=== PATIENT | female | born 1980 | race Caucasian/White ===

== ENCOUNTER 2017-02-07 01:04 | Emergency (ER) | payer MEDICAID ==
[2017-02-07 02:39] VITALS: BP 123/84
== END 2017-02-07 02:39 | disposition home or self-care (01) ==
LOC: ED 01:04
DX: J20.9 Acute bronchitis, unspecified (principal); E66.9 Obesity, unspecified
CPT/HCPCS: J7620; Q0092

== ENCOUNTER 2017-03-03 19:15 | Inpatient (IN) | payer MEDICAID ==
[~2017-03-03] VITALS: Ht 160 cm; Wt 91.2 kg
[2017-03-03 20:44] LABS: BASOPHIL % 0.3 % (0-2); PLATELET COUNT 161 x10^3mcL (130-400); RED CELL DISTRIBUTION WIDTH 13.6 % (11.5-14.5)
[2017-03-03 21:00] LABS: CALCIUM 8.6 mg/dL (8.5-10.1); CARBON DIOXIDE 24.3 mmol/L (21-32); CHLORIDE SERUM 104 mmol/L (98-107); CREATININE SERUM 0.9 mg/dL (0.6-1.0); GFR1 > 60 mL/min; GLUCOSE SERUM 147 mg/dL (74-106); POTASSIUM SERUM 3.5 mmol/L (3.5-5.1); SODIUM SERUM 140 mmol/L (136-145)
[2017-03-03 21:05] LABS: ALBUMIN 3.5 g/dL (3.4-5.0); ALKALINE PHOSPHATASE 94 U/L (46-116); ALT/SGPT 52 U/L (14-59); AST/SGOT 24 U/L (15-37); BILIRUBIN TOTAL 1.05 mg/dL (0.20-1.00); TOTAL PROTEIN, SERUM 7.7 g/dL (6.4-8.2)
[2017-03-03 21:14] LABS: microscopic required? YES; urine erythrocyte TRACE (NEGATIVE)
[2017-03-03 23:12] VITALS: BP 108/76
[2017-03-03 23:13] LABS: MAGNESIUM 1.9 mg/dL (1.8-2.4); PHOSPHOROUS 2.3 mg/dL (2.5-4.9)
[2017-03-03 23:23] LABS: FREE T4 1.24 ng/dL (0.76-1.46); FREE THYROXINE INDEX 2.7 ug/dL (1.4-4.5)
[2017-03-03 23:24] LABS: CHOLESTEROL/HDL RATIO 3.3
[2017-03-04 00:21] LABS: T3 TOTAL 1.13 ng/mL
[2017-03-04 02:33] LABS: AMPHETAMINE QUAL UR NONE DETECTED (NEG <=1000)
[2017-03-04 05:55] VITALS: BP 91/57
[2017-03-04 06:21] LABS: BASOPHIL % 0.3 % (0-2); PLATELET COUNT 164 x10^3mcL (130-400); RED CELL DISTRIBUTION WIDTH 13.6 % (11.5-14.5)
[2017-03-04 06:41] LABS: CALCIUM 7.4 mg/dL (8.5-10.1); CARBON DIOXIDE 25.3 mmol/L (21-32); CHLORIDE SERUM 113 mmol/L (98-107); CREATININE SERUM 0.7 mg/dL (0.6-1.0); GFR1 > 60 mL/min; GLUCOSE SERUM 125 mg/dL (74-106); POTASSIUM SERUM 3.9 mmol/L (3.5-5.1); SODIUM SERUM 146 mmol/L (136-145)
[2017-03-04 10:36] VITALS: BP 128/79
[2017-03-04 13:38] VITALS: BP 106/61
[2017-03-04 17:14] VITALS: BP 111/68
[2017-03-04 21:59] VITALS: BP 131/82
[2017-03-05 05:54] VITALS: BP 119/79
[2017-03-05 06:56] LABS: BASOPHIL % 0.3 % (0-2); PLATELET COUNT 158 x10^3mcL (130-400); RED CELL DISTRIBUTION WIDTH 13.6 % (11.5-14.5)
[2017-03-05 07:08] LABS: CALCIUM 8.2 mg/dL (8.5-10.1); CARBON DIOXIDE 25.7 mmol/L (21-32); CHLORIDE SERUM 107 mmol/L (98-107); CREATININE SERUM 0.7 mg/dL (0.6-1.0); GFR1 > 60 mL/min; GLUCOSE SERUM 143 mg/dL (74-106); PHOSPHOROUS 2.9 mg/dL (2.5-4.9); POTASSIUM SERUM 3.4 mmol/L (3.5-5.1); SODIUM SERUM 142 mmol/L (136-145)
[2017-03-05] MEDS ORDERED: FLO4 PO (09:49)
[2017-03-05] MEDS ORDERED: MAC100 PO ×2 (09:50→12:07)
[2017-03-05] MEDS ORDERED: LIPI10 PO (09:51)
[2017-03-05] MEDS ORDERED: LAC PO ×2 (09:51→12:07)
[2017-03-05] MEDS ORDERED: COL100 PO (09:52)
[2017-03-05] MEDS ORDERED: GLU500 PO (09:52)
[2017-03-05] MEDS ORDERED: PYR100 PO (09:53)
[2017-03-05 10:15] VITALS: BP 118/65
[2017-03-05 10:41] VITALS: BP 119/79
[2017-03-05 14:30] VITALS: BP 118/67
[2017-03-05 16:36] VITALS: Ht 160 cm; Wt 91.2 kg
[2017-03-05 17:20] VITALS: BP 109/64
[2017-03-05 21:15] VITALS: BP 110/75
[2017-03-06 06:24] VITALS: BP 102/54
[2017-03-06 07:17] LABS: BASOPHIL % 0.3 % (0-2); PLATELET COUNT 171 x10^3mcL (130-400); RED CELL DISTRIBUTION WIDTH 13.7 % (11.5-14.5)
[2017-03-06 07:25] LABS: CALCIUM 8.6 mg/dL (8.5-10.1); CARBON DIOXIDE 27.3 mmol/L (21-32); CHLORIDE SERUM 103 mmol/L (98-107); CREATININE SERUM 0.7 mg/dL (0.6-1.0); GFR1 > 60 mL/min; GLUCOSE SERUM 145 mg/dL (74-106); POTASSIUM SERUM 3.5 mmol/L (3.5-5.1); SODIUM SERUM 137 mmol/L (136-145)
[2017-03-06] MEDS ORDERED: LEVAQUIN750 MG PO (10:04)
[2017-03-06 10:11] VITALS: BP 136/85
[2017-03-06 10:29] VITALS: BP 136/85
== END 2017-03-06 14:20 | disposition home or self-care (01) | DRG 720 ==
LOC: ED 19:15 → MU 22:25 → DU 22:25 → MU 03-04 14:22
PROVIDERS: Emergency Medicine; ADMIT Family Medicine
DX: A41.51 Sepsis due to Escherichia coli [E. coli] (principal); E87.0 Hyperosmolality and hypernatremia; D68.69 Other thrombophilia; E11.65 Type 2 diabetes mellitus with hyperglycemia; N13.30 Unspecified hydronephrosis; K76.89 Other specified diseases of liver; E83.39 Other disorders of phosphorus metabolism; N12 Tubulo-interstitial nephritis, not specified as acute or chronic; D64.9 Anemia, unspecified; E78.2 Mixed hyperlipidemia; E66.9 Obesity, unspecified; Z68.36 Body mass index [BMI] 36.0-36.9, adult
CPT/HCPCS: 82962; 83880; 84439; J0696; J1885; J1956; J3490; J7030; Q0092

== ENCOUNTER 2017-09-04 03:16 | Emergency (ER) | payer MEDICAID ==
[~2017-09-04] VITALS: Ht 160 cm; Wt 98.0 kg
[~2017-09-04 03:16] MED LIST: COL100 PO; FLO4 PO; GLU500 PO; LAC PO; LEVAQUIN750 MG PO; LIPI10 PO; MAC100 PO; PYR100 PO
[2017-09-04 03:31] VITALS: Ht 160 cm; Wt 98.0 kg
[2017-09-04 04:45] VITALS: BP 152/92
== END 2017-09-04 04:45 | disposition home or self-care (01) ==
LOC: ED 03:16
DX: O26.891 Other specified pregnancy related conditions, first trimester (principal); M25.811 Other specified joint disorders, right shoulder; Z3A.11 11 weeks gestation of pregnancy

== ENCOUNTER 2018-06-04 22:23 | Emergency (ER) | payer MEDICAID ==
[~2018-06-04] VITALS: Ht 160 cm; Wt 84.5 kg
[2018-06-04 22:38] VITALS: Ht 160 cm; Wt 84.5 kg
[2018-06-05 01:47] VITALS: BP 112/76
== END 2018-06-05 01:47 | disposition home or self-care (01) ==
LOC: ED 22:23
DX: T78.1XXA Other adverse food reactions, not elsewhere classified, initial encounter (principal); Z90.49 Acquired absence of other specified parts of digestive tract; X58.XXXA Exposure to other specified factors, initial encounter
CPT/HCPCS: J1200; J2930; J3490